=== PATIENT | male | born 1965 | race Caucasian/White ===

== ENCOUNTER → 2020-12-12 10:20 | Outpatient (BNVA) | payer OTHER, SELFPAY | PROVIDERS: Visit Provider Family Medicine | DX: E78.00 Pure hypercholesterolemia, unspecified (principal); I10 Essential (primary) hypertension; M50.90 Cervical disc disorder, unspecified, unspecified cervical region | CPT/HCPCS: 80053; 80061; 85025 ==

== ENCOUNTER → 2021-01-11 08:34 | Outpatient (BNVA) | payer OTHER, SELFPAY | PROVIDERS: PCP Family Medicine; Visit Provider Family Medicine | DX: R89.9 Unspecified abnormal finding in specimens from other organs, systems and tissues (principal) | CPT/HCPCS: 85025 ==

== ENCOUNTER → 2021-05-28 10:50 | Outpatient (BNVA) | payer OTHER, SELFPAY | PROVIDERS: PCP Family Medicine; Visit Provider Nurse Practitioner Family | DX: Z20.822 Contact with and (suspected) exposure to COVID-19 (principal); J06.9 Acute upper respiratory infection, unspecified | CPT/HCPCS: 87635 ==

== ENCOUNTER 2021-06-02 17:46 | Emergency (ER) | payer OTHER, SELFPAY ==
[2021-06-02] VITALS (13 sets, daily range): BP systolic 116–135; BP diastolic 78–94; PULSE 18–81; RESP 18–69; TEMP 36.8; O2SAT 91–95; BMI 26.2
--- NOTE | 2021-06-02 18:19 | XRR_ITS ---
PROCEDURE INFORMATION: Exam: XR Chest Exam date and time: 06/02/2021 6:19 PM Age: 56 years old Clinical indication: Dyspnea TECHNIQUE: Imaging protocol: XR of the chest. Views: 1 view. Total images: 1 COMPARISON: No relevant prior studies available. FINDINGS: Lungs: Minimal discoid atelectasis lung bases. No other evidence of active interstitial or alveolar airspace disease. Pleural spaces: Unremarkable. No pleural effusion. No pneumothorax. Heart/Mediastinum: Unremarkable. No cardiomegaly. Bones/joints: Unremarkable. XR/XR chest 1V portable [id number] IMPRESSION: Minimal discoid atelectasis lung bases.
--- NOTE | 2021-06-02 18:42 | ED_ITS ---
HPI - COVID General: Chief Complaint: COVID symptoms Stated Complaint: COVID +: SWEATING PROFUSELY,PAIN,NAUSEA Time Seen by Provider: 06/02/21 18:22 Triage information: No fever, cough or shortness of breath . No known COVID + exposure last 14 days History of Present Illness: HPI Narrative: 56-year-old male presents emergency room complaining of increasing weakness poor appetite generalized myalgias. He has been minimally short of breath and had some slight cough. He was diagnosed with Covid 7 days ago symptoms seem to take a significant uptick in the last 24 hours. He has not had any vomiting or diarrhea. He has had some anosmia. Patient is hypertensive but otherwise have no other significant past medical history MD complaint: known COVID positive Prior covid testing: yes, results known Prior testing date: 05/28/21 COVID 19 common symptoms: positive fever(s), chills, cough, non-productive cough, dyspnea, fatigue, body aches, headache(s), loss of sense of smell and/or taste, nasal congestion and nausea; negative vomiting or diarrhea COVID 19 other sytmptoms: negative chest pain or requiring oxygen Onset (ago): day(s) (7) Severity: mild Pertinent comorbid conditions: hypertension Treatment prior to arrival: ibuprofen COVID Results: Nasal/Oral Coronavirus 2019 PCR Detected H 05/28/21 10:50 05/28/21 Review of Systems Const: Reports: fever(s), chills, body aches and fatigue ENMT: Reports: nasal congestion Card: Denies: chest pain, edema, dyspnea on exertion or orthopnea Resp: Reports: dyspnea and non-productive cough GI: Reports: nausea; Denies: vomiting or diarrhea : Denies: flank pain, dysuria, urinary frequency or urinary urgency Skin/Breast: Denies: rash or pruritus Neuro: Reports: headache(s) PFSH ED PFSH: Medical History Cervical disc disease Hypercholesteremia Hypertension Social History Smoking and tobacco status: never smoked Quit status (tobacco): has quit using tobacco Alcohol intake: current Alcohol intake frequency: holidays/special occasions only Physical Exam Const: COMMON NORMALS: no acute distress GENERAL APPEARANCE: cooperative and comfortable ORIENTATION/CONSCIOUSNESS: Yes awake, Yes oriented to person, Yes oriented to place and Yes oriented to time HENMT: COMMON NORMALS: normocephalic, atraumatic, hearing grossly normal bilaterally and external ears normal HEAD & SCALP: normocephalic and atraumatic EXTERNAL EAR: Yes external ears normal Neck/C-Spine: COMMON NORMALS: no JVD Resp: COMMON NORMALS: normal respiratory effort, No retractions, No use of accessory muscles and clear to auscultation bilaterally AUSCULTATION: clear to auscultation bilaterally Cardio: COMMON NORMALS: no JVD, regular rate, regular rhythm and No murmurs present (Cardio) RATE: regular rate RHYTHM: regular rhythm GI: COMMON NORMALS: Soft to palpation and No hepatosplenomegaly present AUSCULTATION: Yes normoactive bowel sounds PALPATION: Yes Soft to palpation, No Tenderness to palpation present (GI), No Guarding due to palpation present (GI) and Yes No hepatosplenomegaly present Extremity: COMMON NORMALS: normal to inspection, capillary refill normal, no clubbing, cyanosis or edema, no calf tenderness and no pedal edema Neuro: SENSORIUM/ORIENTATION: Yes oriented to person, Yes oriented to place and Yes oriented to time Skin: COMMON NORMALS: no rashes or lesions noted GENERAL SKIN EXAM: no rashes or lesions noted Course Vital Signs: Vital signs: Vital Signs Temperature 98.2 F 06/02/21 18:06 Pulse Rate 18 L 06/02/21 21:31 Respiratory Rate 69 H 06/02/21 21:31 Blood Pressure 122/94 06/02/21 21:31 Pulse Oximetry 93 06/02/21 21:31 MDM - COVID MDM Narrative: Medical decision making narrative: Discussed risk factors for monoclonal antibodies. Patient wishes to proceed. After transfusion is discharged home monitor O2 sats return if his problems. Note at the time of discharge reviewed his vitals they were normal they are charted in the chart however appears the pulse and the heart rate were entered in the wrong boxes. We will have asked nursing to review. COVID Results: Nasal/Oral Coronavirus 2019 PCR Detected H 05/28/21 10:50 05/28/21 Monoclonal Antibody Treatments Inclusion/Exclusion Criteria weight >/= 40 kg and + direct Sars-Cov-2 test less than 7-10 days ago age >/= 55 and has hypertension not requiring hospitalization, not requiring oxygen (if not chronically on oxygen) and no increase oxygen requirement (if chronically on oxygen) Patient education patient/family/caregiver received/reviewed fact sheet, Emergency Use Authorization/unapproved drug status discussed with patient/family/caregiver, alternatives to this treatment discussed with patient/family/caregiver, risks and benefits of medication reviewed with patient/family/caregiver, patient/family/caregiver given opportunity for questions, which were answered and patient consents to receiving Monoclonal Antibody Treatment Plan for treatment Meets criteria for Monoclonal Antibody infusion Ordering Monoclonal Antibody infusion for today Discharge Plan Discharge Patient Disposition: Home Clinical Impression: COVID-19, Benign essential HTN Condition: Stable Prescriptions: No Action cyclobenzaprine 5 mg tablet 5 mg PO TID PRN (Reason: muscle spasm) Qty: 60 RF: 1 lisinopril-hydrochlorothiazide 10-12.5 mg tablet 1 tab PO DAILY Qty: 90 RF: 3 hydrocodone-acetaminophen 5-325 mg tablet 1 tab PO Q6H PRN (Reason: pain) 7 Days Qty: 28 RF: 0 Discharge Orders: Discharge ED (Routine); Ordered 06/02/21 Ordered By: Curtis Disla Referrals: Merle Bolaños MD [Primary Care Provider] - Patient Instructions: Opioid Safety Activity Restrictions/Additional Instructions: Return if you have worsening difficulty breathing. Monitor your home O2 sats if they fall below 90% while at rest return to emergency room Coding Level of Care Code ED Fluid Jet Cutter Operator for Chg Fwd Exam Comprehensive
== END 2021-06-02 21:33 | disposition home or self-care (01) ==
PROVIDERS: Emergency Provider Family Medicine; PCP Family Medicine
DX: U07.1 COVID-19 (principal); I10 Essential (primary) hypertension; E78.00 Pure hypercholesterolemia, unspecified
CPT/HCPCS: 71045; 96365; 99283

== ENCOUNTER → 2021-06-17 16:01 | Outpatient (BNVA) | payer OTHER, SELFPAY | PROVIDERS: PCP Family Medicine; Visit Provider Family Medicine | DX: D75.1 Secondary polycythemia (principal); I10 Essential (primary) hypertension; Z09 Encounter for follow-up examination after completed treatment for conditions other than malignant neoplasm | CPT/HCPCS: 80053; 85025; 85651; 86140 ==

== ENCOUNTER → 2022-06-02 12:18 | Outpatient (BNVA) | payer OTHER, SELFPAY | PROVIDERS: PCP Family Medicine; Visit Provider Family Medicine | DX: I10 Essential (primary) hypertension (principal) | CPT/HCPCS: 80053; 85025 ==

== ENCOUNTER 2023-06-11 09:43 | Outpatient (CLI) | payer OTHER, SELFPAY ==
--- NOTE | 2023-06-11 10:08 | XR_ITS ---
WS: [id number], AP view, 06/11/2023 Clinical Data: 4mm left ureteral stone 05/29/23 Comparison: None. Findings: No abnormal intraabdominal masses are seen. There is a 0.5 cm calcification overlying the left L4 tra nsverse process which may represent a ureteral calculus. No right abdominal calcifications are seen. There is no dilatated small bowel or evidence of obstruction. XR/XR abdomen 1V* [id number] Impression: Probable left ureteral calculus.
== END 2023-06-11 09:44 | disposition home or self-care (01) ==
PROVIDERS: PCP Family Medicine; Visit Provider Family Medicine
DX: N20.1 Calculus of ureter (principal); I10 Essential (primary) hypertension
CPT/HCPCS: 74018; 80053

== ENCOUNTER 2023-08-24 09:06 | Outpatient (CLI) | payer OTHER, SELFPAY ==
--- NOTE | 2023-08-24 09:17 | XRR_ITS ---
PROCEDURE INFORMATION: Exam: XR Abdomen Exam date and time: 08/24/2023 9:21 AM Age: 58 years old Clinical indication: Condition or disease; Kidney or ureter condition; Calculus (stone) in ureter; Prior surgery; Surgery date: 6+ months; Surgery type: Hernia repair, vasectomy; Patient HX: 1rst kidney stone, on left side; Additional info: N20.1 - calculus of ureter TECHNIQUE: Imaging protocol: Radiologic exam of the abdomen. Views: Frontal supine view of the abdomen. 1 View. COMPARISON: CR XR abdomen 1V* [id number] 06/11/2023 10:11 AM FINDINGS: Gastrointestinal tract: Normal. No bowel dilation. Bones/joints: Unremarkable. Other findings: The previously visualized calcification projecting over the left transverse process at the L4 level is no longer visualized XR/XR abdomen 1V* [id number] IMPRESSION: The previously visualized calcification projecting over the left L4 transverse process is no longer visualized.
== END 2023-08-24 09:07 | disposition home or self-care (01) ==
PROVIDERS: PCP Family Medicine; Visit Provider Family Medicine
DX: N20.1 Calculus of ureter (principal); Z98.890 Other specified postprocedural states; Z87.442 Personal history of urinary calculi
CPT/HCPCS: 74018

== ENCOUNTER 2024-01-20 09:12 | Outpatient (CLI) | payer OTHER, SELFPAY ==
--- NOTE | 2024-01-20 09:17 | XRR_ITS ---
PROCEDURE INFORMATION: Exam: XR Chest Exam date and time: 01/20/2024 9:25 AM Age: 58 years old Clinical indication: Cough; Additional info: Persistant cough x 1 month TECHNIQUE: Imaging protocol: Radiologic exam of the chest. Views: 2 views. COMPARISON: CR XR chest 1V portable [id number] 06/02/2021 6:30 PM FINDINGS: Lungs: Unremarkable. No consolidation. Pleural spaces: Unremarkable. No pleural effusion. No pneumothorax. Heart/Mediastinum: Unremarkable. No cardiomegaly. Bones/joints: Unremarkable. XR/XR chest 2V* [id number] IMPRESSION: No acute findings.
== END 2024-01-20 09:13 | disposition home or self-care (01) ==
LOC: RAD 09:13
PROVIDERS: PCP Family Medicine; Visit Provider Family Medicine
DX: J18.9 Pneumonia, unspecified organism (principal)
CPT/HCPCS: 71046

== ENCOUNTER → 2024-02-03 08:39 | Outpatient (BNVA) | payer OTHER, SELFPAY | PROVIDERS: PCP Family Medicine; Referring Provider Family Medicine; Visit Provider Surgery | DX: Z12.11 Encounter for screening for malignant neoplasm of colon (principal); Z98.890 Other specified postprocedural states; Z86.010 Personal history of colon polyps | CPT/HCPCS: 99024; 99204 ==

== ENCOUNTER 2024-03-08 07:47 | Day surgery (SDC) | payer OTHER, SELFPAY ==
[2024-03-08 08:03] VITALS: BMI 27.5
[2024-03-08 08:07] VITALS: BP 129/88; PULSE 97; RESP 18; TEMP 36.4; O2SAT 95
[2024-03-08] MEDS: sodium chloride 0.9% 1,000 ML 30 ML IV (08:12)
--- NOTE | 2024-03-08 08:21 | ANES.PREANE2 ---
Pre-Anesthetic Assessment Height/Weight: Height 1.91 m Weight 99.79 kg Temp Pulse Resp BP Pulse Ox O2 Del Method 97.6 F 97 18 129/88 95 Room Air 03/08/24 08:07 03/08/24 08:07 03/08/24 08:07 03/08/24 08:07 03/08/24 08:07 03/08/24 08:07 Operation Date: 03/08/24 09:10 Proposed Procedures p Colonoscopy(Not Applicable) - Berto Fairchild MD Was Beta Alla taken within 24 hours: N/A Last intake: Intake Last Liquid Date 03/07/24 Last Liquid Time 21:00 Last Solid Date 03/06/24 Social No alcohol and No tobacco Exam alert, oriented x 3, clear to auscultation bilaterally and regular rate & rhythm Airway Submandibular: within normal limits Cervical ROM: within normal limits Mallampati: Class II Pulmonary Cough (3 month history) CV/HEM Hypertension Metabolic Hyperlipidemia Anesthetic Plan ASA status: 2 Anesthesia: MAC Medications/Allergies Home Medications Medication Instructions Recorded Confirmed Last Taken Type losartan 100 1 tab PO DAILY #90 tabs 04/23/23 03/03/24 03/07/24 Rx mg-hydrochlorothiazide 12.5 mg tablet cyclobenzaprine 5 mg tablet 5 mg PO TID PRN muscle spasm #60 01/20/24 03/08/24 03/07/24 Rx tabs hydrocodone 5 mg-acetaminophen 325 1 tab PO Q6H PRN pain 7 days #28 01/20/24 03/08/24 Unknown Rx mg tablet tabs naproxen sodium 220 mg tablet 220 mg PO BID PRN Pain 02/03/24 03/08/24 Unknown History (Aleve) amlodipine 2.5 mg tablet 2.5 mg PO DAILY PRN blood pressure 03/03/24 03/08/24 03/08/24 History over 160/100 Allergies Allergy/AdvReac Type Severity Reaction Status Date / Time No Known Allergies Allergy Verified 03/08/24 08:00 Current Medications Generic Name Dose Route Start Last Admin Trade Name Freq PRN Reason Stop Dose Admin Sodium Chloride 1,000 mls @ 30 mls/hr 03/08/24 08:00 03/08/24 08:12 Sodium Chloride 0.9% IV 30 mls/hr .Q24H KARSTEN Administration PFSH Anesthesia Medical History Cervical disc disease Hypercholesteremia Hypertension Surgical History (Updated 02/03/24 @ 09:32 by Berto Fairchild MD) Hx of colonoscopy with polypectomy 2018 [facility] Family History (Updated 02/03/24 @ 08:[address]) Father Colon cancer Cancer esophageal Grandmother Cancer breast cancer Social History Smoking and tobacco/nicotine status: never used tobacco/nicotine Quit status (tobacco/nicotine): has quit using Alcohol intake: current Alcohol intake frequency: holidays/special occasions only Substance/Drug Use: never Data Anesthesia Cardiac Studies: No Data to Display
--- NOTE | 2024-03-08 08:30 | W.PM.OPSFHP ---
Same Day Surgery H&P Indication for Procedure/HPI DATE OF PROCEDURE: March 08, 2024 CHIEF COMPLAINT/INDICATIONFOR SURGICAL PROCEDURE: need for screening colonoscopy PREOP DIAGNOSIS: need for screening colonoscopy PLANNED PROCEDURE: Operation Date: 03/08/24 09:10 Proposed Procedures p Colonoscopy(Not Applicable) - Berto Fairchild MD Medications/Allergies* Home Medications Medication Instructions Recorded Confirmed Type naproxen sodium 220 mg tablet 220 mg PO BID PRN Pain 02/03/24 03/08/24 History (Aleve) amlodipine 2.5 mg tablet 2.5 mg PO DAILY PRN blood pressure 03/03/24 03/08/24 History over 160/100 Allergies/Adverse Reactions Allergy/AdvReac Type Severity Reaction Status Date / Time No Known Allergies Allergy Verified 03/08/24 08:00 Current Medications: Generic Name Dose Route Start Last Admin Trade Name Freq PRN Reason Stop Dose Admin Sodium Chloride 1,000 mls @ 30 mls/hr 03/08/24 08:00 03/08/24 08:12 Sodium Chloride 0.9% IV 30 mls/hr .Q24H KARSTEN Administration Pertinent History/Comorbid Conditions* Medical History (Updated 06/04/23 @ 09:52 by Merle Bolaños MD) Cervical disc disease Hypercholesteremia Hypertension Surgical History (Updated 02/03/24 @ 09:32 by Berto Fairchild MD) Hx of colonoscopy with polypectomy 2018 [facility] Family History (Updated 02/03/24 @ 08:49 by ANDRÉS Johnson) Colon cancer Father Cancer Father esophageal Grandmother breast cancer Social History Smoking and tobacco/nicotine status: never used tobacco/nicotine Quit status (tobacco/nicotine): has quit using Alcohol intake: current Alcohol intake frequency: holidays/special occasions only Substance/Drug Use: never Pertinent Exam Findings alert, oriented x 3, clear to auscultation bilaterally and regular rate & rhythm Recommendations Surgery/Procedure today Coding Level of Care Code Acute Code for Chg Fwd
[2024-03-08 09:34] VITALS: BP 123/81; PULSE 99; RESP 12; TEMP 36.2; O2SAT 94
[2024-03-08 09:44] VITALS: BP 104/88; PULSE 96; RESP 16; O2SAT 95
--- NOTE | 2024-03-08 12:48 | ANE.PACU2 ---
Inpatient post-anesthesia follow up: Vital signs: Temperature 97.1 F Pulse Rate 96 Respiratory Rate 16 Blood Pressure 104/88 Pulse Oximetry 95 Oxygen Delivery Me thod Room Air Oxygen Flow Rate Fraction of Inspir ed Oxygen Hydration adequate: Yes Nausea and vomiting: No Pain level: 1 Mental status: Baseline
== END 2024-03-08 09:58 | disposition home or self-care (01) ==
PROVIDERS: PCP Family Medicine; Visit Provider Surgery
PROC: 0DJD8ZZ Inspection of Lower Intestinal Tract, Via Natural or Artificial Opening Endoscopic (ICD-10-PCS; CPT 45378; principal; 2024-03-08 09:10)
DX: Z12.11 Encounter for screening for malignant neoplasm of colon (principal); I10 Essential (primary) hypertension; Z87.891 Personal history of nicotine dependence; E78.5 Hyperlipidemia, unspecified; E78.00 Pure hypercholesterolemia, unspecified
CPT/HCPCS: 45378; J2704; J7030

== ENCOUNTER → 2024-04-27 09:31 | Outpatient (BNVA) | payer OTHER, SELFPAY | PROVIDERS: PCP Family Medicine; Visit Provider Family Medicine | DX: R30.0 Dysuria (principal) | CPT/HCPCS: 81000 ==